=== PATIENT | male | born 1980 | race Asian ===

== ENCOUNTER → 2019-02-18 10:22 | Outpatient (CLI) | payer OTHER, SELFPAY ==
[2019-02-18 12:22] LABS: Add Manual Diff / Slide Review NO; Basophils Absolute Auto 0 /uL (0-100); Basophils Percent Auto 0.9 % (0-2); Eosinophils Absolute Auto 100 /uL (0-450); Eosinophils Percent Auto 2.2 % (2-4); Hematocrit 32.7 % (41-53); Hemoglobin 9.9 g/dL (13.5-17.5); Lymphocytes Absolute Auto 1300 /uL (1100-4500); Lymphocytes Percent Auto 34.4 % (25-40); Mean Corpuscular HGB Conc 30.1 % (30-36); Mean Corpuscular Hemoglobin 21.8 PG (26-34); Mean Corpuscular Volume 72.3 fL (80-100); Monocytes Absolute Auto 400 /uL (0-900); Monocytes Percent Auto 10.6 % (3-14); Neutrophils Absolute Auto 2000 /uL (1500-7000); Neutrophils Percent Auto 51.9 % (50-75); Platelet Count 548 X10^3/uL (150-400); Red Blood Cell Count 4.52 X10^6/uL (4.5-5.9); Red Cell Distribution Width 26.2 % (11.6-14.8); White Blood Cell Count 3.9 X10^3/uL (4.5-11.0)
[2019-02-18 12:34] LABS: Alanine Aminotransferase 118 IU/L (21-72); Albumin 4.4 g/dL (3.5-5.0); Albumin Globulin Ratio 1.3 (1.0-2.8); Alkaline Phosphatase 63 U/L (38-126); Aspartate Aminotransferase 94 IU/L (17-59); BUN Creatinine Ratio 14.4 (6-22); Bilirubin Total 0.8 mg/dL (0.2-1.3); Blood Urea Nitrogen 13 mg/dL (9-20); Calcium 9.1 mg/dL (8.4-10.2); Carbon Dioxide 26 mmol/L (22-32); Chloride 101 mmol/L (98-107); Cholesterol 158 mg/dL (140-199); Estimated Glomerular Filt Rate > 60.0 mL/min (>60); Globulin 3.5 g/dL (1.7-4.1); Glucose 89 mg/dL (70-100); HDL Cholesterol 46 mg/dL (40-60); HEMOLYSIS < 15 (0-50); LDL Cholesterol Calculated 79 mg/dL (<100); Potassium 4.1 mmol/L (3.4-5.1); Sodium 138 mmol/L (137-145); Total Protein 7.9 g/dL (6.3-8.2); Triglycerides 163 mg/dL (35-150)
[2019-02-18 12:46] LABS: Hypochromasia 2+
[2019-02-18 12:47] LABS: Anisocytosis 3+
[2019-02-18 13:46] LABS: TSH w/ Reflex to FT4 1.94 uIU/mL (0.47-4.68)
== END ==
PROVIDERS: PCP Family Medicine; Visit Provider Family Medicine
DX: Z13.220 Encounter for screening for lipoid disorders (principal)
CPT/HCPCS: 80053; 80061; 84443; 85025

== ENCOUNTER → 2019-02-24 10:50 | Outpatient (CLI) | payer OTHER, SELFPAY ==
[2019-02-24 11:48] LABS: Add Manual Diff / Slide Review NO; Basophils Absolute Auto 0 /uL (0-100); Basophils Percent Auto 0.5 % (0-2); Eosinophils Absolute Auto 100 /uL (0-450); Eosinophils Percent Auto 1.6 % (2-4); Hematocrit 29.8 % (41-53); Hemoglobin 9.2 g/dL (13.5-17.5); Lymphocytes Absolute Auto 1700 /uL (1100-4500); Lymphocytes Percent Auto 43.5 % (25-40); Mean Corpuscular HGB Conc 30.7 % (30-36); Mean Corpuscular Hemoglobin 21.8 PG (26-34); Monocytes Absolute Auto 500 /uL (0-900); Monocytes Percent Auto 11.9 % (3-14); Neutrophils Absolute Auto 1700 /uL (1500-7000); Neutrophils Percent Auto 42.5 % (50-75); Platelet Count 460 X10^3/uL (150-400); Red Cell Distribution Width 26.9 % (11.6-14.8); White Blood Cell Count 3.9 X10^3/uL (4.5-11.0)
[2019-02-24 12:26] LABS: Anisocytosis 2+; Hypochromasia 3+
[2019-02-24 12:27] LABS: Polychromasia 1+
== END ==
PROVIDERS: PCP Family Medicine; Visit Provider Family Medicine
DX: Z00.01 Encounter for general adult medical examination with abnormal findings (principal); R10.9 Unspecified abdominal pain
CPT/HCPCS: 36415; 85025

== ENCOUNTER → 2019-03-18 14:42 | Outpatient (CLI) | payer OTHER, SELFPAY ==
[2019-03-18 16:21] LABS: HEMOLYSIS < 15 (0-50)
[2019-03-18 16:25] LABS: Erythrocyte Sedimentation Rate 5 MM/HR (0-15)
[2019-03-18 16:26] LABS: Total Iron Binding Capacity 474 ug/dL (261-462); Transferrin 404 mg/dL (206-381)
[2019-03-18 16:49] LABS: Iron 22 ug/dL (49-181); Percent Iron Saturation 5 % (20-50)
[2019-03-18 17:07] LABS: Lactate Dehydrogenase 449 U/L (313-618)
[2019-03-18 17:09] LABS: C-Reactive Protein Quant < 0.5 mg/dL (<1.0)
[2019-03-18 17:39] LABS: Ferritin 6.6 ng/mL (17.9-464)
[2019-03-20 14:43] LABS: Haptoglobin 46 mg/dL (43-212)
[2019-03-21 17:54] LABS: Hematocrit 37.1 % (38.5-50.0); Hemoglobin 10.1 g/dL (13.2-17.1); MCH 20.7 pg (27.0-33.0); MCV 75.9 fL (80.0-100.0); RBC Total Count 4.89 Million/uL (4.20-5.80); RDW 21.3 % (11.0-15.0)
== END ==
PROVIDERS: PCP Family Medicine; Visit Provider Family Medicine
DX: D64.9 Anemia, unspecified (principal)
CPT/HCPCS: 82728; 83010; 83021; 83540; 83550; 83615; 85014; 85018; 85041; 85651; 86140; 87517

== ENCOUNTER → 2019-03-24 12:42 | Outpatient (CLI) | payer OTHER, SELFPAY ==
[2019-03-24 14:04] LABS: Hep C Virus Ab w/Reflex Quant NEGATIVE s/c (NEGATIVE)
== END ==
PROVIDERS: PCP Family Medicine; Visit Provider Family Medicine
DX: D64.9 Anemia, unspecified (principal); Z11.59 Encounter for screening for other viral diseases
CPT/HCPCS: 86803

== ENCOUNTER 2019-11-17 14:29 | Inpatient (IN) | payer OTHER, SELFPAY ==
[2019-11-17] VITALS (24 sets, daily range): BP systolic 92–140; BP diastolic 56–93; PULSE 84–112; RESP 13–18; TEMP 36.4–38.8; O2SAT 99–100; BMI 28.8
--- NOTE | 2019-11-17 | PATH_ITS ---
[facility] Accession Number: [id number] . 01 Material submitted: . duodenum - DUODENAL ULCER . 01 Diagnosis: Duodenum, Ulcer, Biopsy: Duodenal mucosa with ulcer and focal foveolar metaplasia, suggestive of peptic duodenitis. Negative for cytomegalovirus inclusions by immunohistochemistry. Negative for granulomata, dysplasia or malignancy. MRV 11/20/2019 1142 Local . 01 Electronically signed: . Rashaun Guidry MD, PhD, Pathologist NPI- [id number] . 01 Gross description: . DUODENAL ULCER: Received in formalin are 2 fragment(s) of hook, soft tissue measuring 0.2 x 0.2 x 0.1 cm to 0.3 x 0.1 x 0.1 cm submitted entirely in 1 cassette(s) /QBJ 11/18/2019 0559 Local . 01 Microscopic: . An immunohistochemical stain is performed to evaluate for cytomegalovirus inclusions, and is negative. A control stain shows appropriate reactivity. . * This test was developed and its performance characteristics determined by [facility]. It has not been cleared or approved by the U.S. Food and Drug Administration. The FDA has determined that such clearance or approval is not necessary. This test is used for clinical purposes. It should not be regarded as investigational or for research. . 01 Pathologist provided ICD-10: K92.1, K29.81 . 01 CPT . 280142, F19838 Performed at: 01 [facility] [address] [address] [place] [address], [place], [place] [id number] MD Paramjit Rojas MD Phone: [phone]
--- NOTE | 2019-11-17 15:06 | ED_ITS ---
HPI - Dizziness General Chief Complaint: Dizziness Stated Complaint: Dizziness,Weak and fatigued Time Seen by Provider: 11/17/19 14:45 History of Present Illness HPI Narrative: CC: weakness and dizziness. HPI: The patient is a 39-year-old male who was sent into the emergency department by Dr. Hardy. Dr. Hardy sent the patient from his office. He states that the patient has a history of gastric ulcers and hepatitis B. in the office he was hypotensive and pale complaining of being dizzy and lightheaded. He had black stools in the office. He was sent to the emergency department to be re- evaluated for an occult GI bleed. The patient is very weak and tired. His history is primarily provided by his significant other. He has been eating and drinking a lot of blueberry shakes but his stool is black. He has had no nausea vomiting no hematemesis or coffee- ground emesis. He has been having abdominal pain in the epigastrium. He has had no syncope but he has been extremely tired and dizzy. They deny a history of diabetes mellitus hypertension seizure disorder stroke [place] or asthma. He has a history of gastric ulcer and hepatitis-B. He does not smoke cigarettes and chew tobacco use any drugs including marijuana but does drink alcohol. Related Data Home Medications Medication Instructions Recorded Confirmed No Known Home Medications 11/17/19 11/17/19 Allergies Allergy/AdvReac Type Severity Reaction Status Date / Time No Known Drug Allergies Allergy Verified 11/17/19 14:03 Review of Systems Review of Systems Narrative: REVIEW OF SYSTEMS: CONSTITUTIONAL: The patient has been very weak and tired dizzy and lightheaded. He has had no fever chills or sweats. NEUROLOGICAL: He has had no headache numbness tingling paresthesias anesthesia is paresis or paralysis. EENT: He has had no change in vision loss of vision sinus congestion sore throat CARDIO-PULMONARY: He has had no chest pain cough shortness of breath palpitations but has been dizzy and lightheaded as though he is going to pass out. GASTROINTESTINAL: Patient has had epigastric abdominal pain with nausea no vomiting no hematemesis coffee-ground emesis but has had melanotic stools. GENITAL URINARY: He has had no urinary symptoms. MUSCULOSKELETAL/ RHEUMATOLOGICAL: He denies any back pain Patient History Medical History Acute blood loss anemia (Acute) Gastric ulcer (Acute) Hepatitis B (Acute) Surgical History Status post arthroscopy Family History Mother Diabetes mellitus Liver disease Social History marital status: household members: spouse Smoking Status: Never smoker alcohol intake: current substance use type: does not use Smoking Status: Never smoker Exam Narrative Exam Narrative: PHYSICAL EXAM: CONSTITUTIONAL: The patient is very quiet and sleeping. His conjunctiva are pale as well as his lips and tongue. HEAD: AT/NC, the patient became weak and tired and very dizzy when he sat up EENT: PERRL, FROM of eyes, no discharge, no nystagmus MOUTH:Oral mucosa is moist and pale, posterior pharynx is without erythema or exudate. NECK: Supple, no obvious JVD, Trachea is midline without stridor, no palpable LN. SPINE: Palpationof the cervical, Thoracic, Lumbar or Sacral spine reveals no gross deformity or tenderness. No CVA tenderness. THORAX: No deformity, retractions, chest wall tenderness. LUNGS: Clear, symmetrical breath sounds without respiratory distress. HEART: Heart tones are distant regular tachycardic without murmur ABDOMEN: Soft, mild tender in the epigastrium without guarding or rebound EXTREMITIES: No edema, deformity, tenderness or cyanosis. SKIN: No rash, bruising, petechiae or purpura. NEURO: Awake, alert, oriented, conversive, cranial nerves II-XII are symmetrical , moves all 4 extremities and is ambulatory. Initial Vital Signs Initial Vital Signs: Vital Signs Temperature 97.6 F 11/17/19 15:14 Pulse Rate 112 H 11/17/19 15:14 Respiratory Rate 13 11/17/19 15:14 Blood Pressure 120/58 L 11/17/19 15:14 Pulse Oximetry 100 11/17/19 15:14 Course Course Course Narrative: 1536: I discussed the patient with Dr. Julien and he requested that I call and discussed the patient with General surgery because he is unsure whether not they will be able to scope him with his history. The patient appears to be having an acute upper GI bleed. Dr. Morel has been paged. [id number]: I discussed the patient with Dr. Morel and he says that he can go ahead and scope the patient. He states that the only potential problem is is if he has varices. The patient and his deny that he has ever been told that he had esophageal or gastric varices or that he has cirrhosis of the liver. He has been told that he has hepatitis B and no other liver disease. Dr. Morel states that he is willing to consult and scope the patient. I will call and discussed the patient with Dr. Julien. The patient was admitted to Dr. Julien as an inpatient with Dr. Maria Teresa back onsulting from general surgery. Orders Ordered: ED Orders 11/17/19 14:46 Urinalysis and Microscopic Stat 11/17/19 14:48 Complete Blood Count AUTO DIFF Stat Comprehensive Metabolic Panel Stat Lipase Stat Packed Cells Stat Troponin & CK Cardiac Panel Stat Type and Screen Stat 11/17/19 15:40 Lactate (Lactic Acid) Stat Pantoprazole Sodium 80 mg/ (Sodium Chloride) 100 mls @ 10 mls/hr IV CONT FRANKLYN Last Infusion: 11/17/19 17:51 Dose: 8 mg/hr, 10 mls/hr Documented by: Admin: 11/17/19 15:56 Dose: 8 mg/hr, 10 mls/hr Documented by: VINCE Sodium Chloride (Normal Saline 0.9%) 500 mls @ 21 mls/hr IV CONT FRANKLYN Discontinued Medications Sodium Chloride (Normal Saline 0.9%) 1,000 mls @ 1,000 mls/hr IV BOLUS ONE Stop: 11/17/19 15:45 Last Admin: 11/17/19 18:22 Dose: 42 mls/hr Documented by: Infusion: 11/17/19 16:23 Dose: 0 mls/hr Documented by: Admin: 11/17/19 15:14 Dose: 1,000 mls/hr Documented by: MARK Pantoprazole Sodium (Protonix) 40 mg IV NOW ONE Stop: 11/17/19 14:47 Last Admin: 11/17/19 15:14 Dose: 40 mg Documented by: MARK Vital Signs Vital signs: Vital Signs - 8 hr 11/17/19 15:14 11/17/19 16:02 Temperature 97.6 F 98.5 F Pulse Rate 112 H 93 H Respiratory Rate 13 13 Blood Pressure 120/58 L 130/61 Pulse Oximetry 100 MDM - Dizziness Medical Records Attestation: I reviewed the patient's medical records. Lab Data Attestation: I reviewed the patient's lab results. Result diagrams: 11/17/19 14:48 11/17/19 14:48 Labs: Lab Results 11/17/19 11/17/19 11/17/19 Range/Units 14:48 14:48 14:48 WBC 13.8 H (4.5-11.0) X10^3/uL RBC 2.39 L (4.5-5.9) X10^6/uL Hgb 4.8 L* (13.5-17.5) g/dL Hct 16.4 L* (41-53) % MCV 68.4 L (80-100) fL MCH 20.1 L (26-34) PG MCHC 29.4 L (30-36) % RDW 26.8 H (11.6-14.8) % Plt Count 435 H (150-400) X10^3/uL Neut % (Auto) 86.5 H (50-75) % Lymph % (Auto) 10.2 L (25-40) % [place] % (Auto) 2.8 L (3-14) % Eos % (Auto) 0.0 L (2-4) % Baso % (Auto) 0.5 (0-2) % Neut # (Auto) 50097 H (2258-1796) /uL Lymph # (Auto) 1400 (5659-5165) /uL [place] # (Auto) 400 (0-900) /uL Eos # (Auto) 0 (0-450) /uL Baso # (Auto) 100 (0-100) /uL RBC Morphology See below Polychromasia 3+ H Poikilocytosis 1+ H Anisocytosis 3+ H Microcytosis 2+ H Sodium 135 L (137-145) mmol/L Potassium 4.1 (3.4-5.1) mmol/L Chloride 107 (98-107) mmol/L Carbon Dioxide 21 L (22-32) mmol/L BUN 27 H (9-20) mg/dL Creatinine 0.88 (0.66-1.25) mg/dL Estimated GFR > 60.0 (>60) mL/min BUN/Creatinine Ratio 30.7 H (6-22) Glucose 147 H (70-100) mg/dL Lactate (0.7-2.1) mmol/L Calcium 8.0 L (8.4-10.2) mg/dL Total Bilirubin 0.2 (0.2-1.3) mg/dL AST 75 H (17-59) IU/L ALT 130 H (<50) IU/L Alkaline Phosphatase 36 L (38-126) U/L Total Creatine Kinase 77 (55-170) U/L CK-MB (CK-2) TNP CK-MB (CK-2) Rel Index TNP Troponin I < 0.012 (0.01-0.034) ng/mL Total Protein 5.8 L (6.3-8.2) g/dL Albumin 3.1 L (3.5-5.0) g/dL Globulin 2.7 (1.7-4.1) g/dL Albumin/Globulin Ratio 1.1 (1.0-2.8) Lipase 110 (23-300) U/L Blood Type A Positive Antibody Screen Negative Crossmatch See Detail 11/17/19 Range/Units 15:40 WBC (4.5-11.0) X10^3/uL RBC (4.5-5.9) X10^6/uL Hgb (13.5-17.5) g/dL Hct (41-53) % MCV (80-100) fL MCH (26-34) PG MCHC (30-36) % RDW (11.6-14.8) % Plt Count (150-400) X10^3/uL Neut % (Auto) (50-75) % Lymph % (Auto) (25-40) % [place] % (Auto) (3-14) % Eos % (Auto) (2-4) % Baso % (Auto) (0-2) % Neut # (Auto) (6241-7899) /uL Lymph # (Auto) (3182-4247) /uL [place] # (Auto) (0-900) /uL Eos # (Auto) (0-450) /uL Baso # (Auto) (0-100) /uL RBC Morphology Polychromasia Poikilocytosis Anisocytosis Microcytosis Sodium (137-145) mmol/L Potassium (3.4-5.1) mmol/L Chloride (98-107) mmol/L Carbon Dioxide (22-32) mmol/L BUN (9-20) mg/dL Creatinine (0.66-1.25) mg/dL Estimated GFR (>60) mL/min BUN/Creatinine Ratio (6-22) Glucose (70-100) mg/dL Lactate 2.7 H (0.7-2.1) mmol/L Calcium (8.4-10.2) mg/dL Total Bilirubin (0.2-1.3) mg/dL AST (17-59) IU/L ALT (<50) IU/L Alkaline Phosphatase (38-126) U/L Total Creatine Kinase (55-170) U/L CK-MB (CK-2) CK-MB (CK-2) Rel Index Troponin I (0.01-0.034) ng/mL Total Protein (6.3-8.2) g/dL Albumin (3.5-5.0) g/dL Globulin (1.7-4.1) g/dL Albumin/Globulin Ratio (1.0-2.8) Lipase (23-300) U/L Blood Type Antibody Screen Crossmatch ECG Data Attestation: I personally reviewed and interpreted this ECG as follows: Interpretation: The patient's EKG obtained on November 16 at 14:4 2:28 a.m. reveals a normal sinus rhythm with a ventricular rate of 95. The patient has left ventricular hypertrophy by voltage. His QTC is slightly prolonged at 480 milliseconds. [place] is normal. The patient has a small R-wave in lead III. T- waves are flat in leads III and slightly elevated in AVF. T-waves are upright in V1. There are no other acute diagnostic ST segment changes. The patient's T-waves are inverted in lead V4 V5 V6 suggestive of lateral wall ischemia. There is no ST segment suggesting infarct. Discharge Plan Departure Patient Disposition: Admitted As Inpatient Clinical Impression: Dizziness, H/O gastric ulcer GI bleeding Qualifiers: GI bleed type/associated pathology: melena Qualified Code(s): K92.1 - Melena Anemia Qualifiers: Anemia type: unspecified type Qualified Code(s): D64.9 - Anemia, unspecified Discharge Date/Time: 11/17/19 17:51 Referrals: Antonio Gar MD [Primary Care Provider] - Admit Date/Time: 11/17/19 16:09 Admit Provider: Aryan Julien
[2019-11-17 15:09] LABS: Add Manual Diff / Slide Review NO; Basophils Absolute Auto 100 /uL (0-100); Basophils Percent Auto 0.5 % (0-2); Eosinophils Absolute Auto 0 /uL (0-450); Lymphocytes Absolute Auto 1400 /uL (1100-4500); Lymphocytes Percent Auto 10.2 % (25-40); Mean Corpuscular HGB Conc 29.4 % (30-36); Mean Corpuscular Hemoglobin 20.1 PG (26-34); Mean Corpuscular Volume 68.4 fL (80-100); Monocytes Absolute Auto 400 /uL (0-900); Monocytes Percent Auto 2.8 % (3-14); Neutrophils Absolute Auto 11900 /uL (1500-7000); Neutrophils Percent Auto 86.5 % (50-75); Platelet Count 435 X10^3/uL (150-400); Red Blood Cell Count 2.39 X10^6/uL (4.5-5.9); Red Cell Distribution Width 26.8 % (11.6-14.8); White Blood Cell Count 13.8 X10^3/uL (4.5-11.0)
[2019-11-17] MEDS: SODIUM CHLORIDE 0.9% 1,000 ML 1000 ML IV (15:14)
[2019-11-17] MEDS: PANTOPRAZOLE 40 MG VIAL IV (15:14)
[2019-11-17 15:18] LABS: Alanine Aminotransferase 130 IU/L (<50); Albumin 3.1 g/dL (3.5-5.0); Albumin Globulin Ratio 1.1 (1.0-2.8); Alkaline Phosphatase 36 U/L (38-126); Aspartate Aminotransferase 75 IU/L (17-59); BUN Creatinine Ratio 30.7 (6-22); Bilirubin Total 0.2 mg/dL (0.2-1.3); Blood Urea Nitrogen 27 mg/dL (9-20); Carbon Dioxide 21 mmol/L (22-32); Chloride 107 mmol/L (98-107); Creatine Kinase 77 U/L (55-170); Estimated Glomerular Filt Rate > 60.0 mL/min (>60); Globulin 2.7 g/dL (1.7-4.1); Glucose 147 mg/dL (70-100); HEMOLYSIS < 15 (0-50); Lipase 110 U/L (23-300); Potassium 4.1 mmol/L (3.4-5.1); Sodium 135 mmol/L (137-145); Total Protein 5.8 g/dL (6.3-8.2)
[2019-11-17 15:20] LABS: Hematocrit 16.4 % (41-53)
--- NOTE | 2019-11-17 15:20 | PC.NURSE ---
reports sudden onset of weakness. reports started yesterday, he states his stomach has been upset on and off due to a diet he has been on. He stopped that diet yesterday.
[2019-11-17 15:21] LABS: Hemoglobin 4.8 g/dL (13.5-17.5)
[2019-11-17 15:28] LABS: Troponin I < 0.012 ng/mL (0.01-0.034)
[2019-11-17 15:37] LABS: Poikilocytosis 1+; Polychromasia 3+
[2019-11-17 15:38] LABS: Anisocytosis 3+; Microcytosis 2+
[2019-11-17] MEDS: PANTOPRAZOLE 80 MG in SODIUM CHLORIDE 0.9% 100 ML 10 ML IV (15:56)
[2019-11-17 15:58] LABS: Lactate (Lactic Acid) 2.7 mmol/L (0.7-2.1)
--- NOTE | 2019-11-17 16:13 | PC.NURSE ---
dr loaiza at bedside consenting for surgery. rapid covid swab collected and sent to lab.
--- NOTE | 2019-11-17 16:19 | P.CONS_ITS ---
History of Present Illness Consult details Date Patient Seen: 11/17/19 Time Patient Seen: 16:20 Chief complaint: Dizziness,Weak and fatigued Narrative: This is a 39-year-old male with a GI bleed. He presents to the emergency room today with dizziness epigastric pain and melanotic stool. He has had no vomiting or hematemesis. On admission hemoglobin 4.8 heart rate 110 blood pressure 100/60. He is currently receiving transfusion. He is not on anticoagulation, does not take NSAIDs or use tobacco he does consume alcohol several times per week. No history of prior endoscopy. Last solid food intake was 16 hours ago. Meds Home Medications and Allergies Home Medications Medication Instructions Recorded Confirmed Type No Known Home Medications 11/17/19 11/17/19 History Allergies Allergy/AdvReac Type Severity Reaction Status Date / Time No Known Drug Allergies Allergy Verified 11/17/19 14:03 Review of Systems Review of Systems Narrative: A 10 point review of systems is negative except as noted in the HPI Exam Vital Signs (past 8 hours): - 11/17/19 15:14 11/17/19 16:02 11/17/19 16:17 Temperature 97.6 F 98.5 F 98.4 F Pulse Rate 112 H 93 H 99 H Respiratory Rate 13 13 14 Blood Pressure 120/58 L 130/61 130/60 Pulse Oximetry 100 Oxygen Delivery Method Room Air Narrative Exam Narrative: General-no acute distress, well nourished HEENT-moist mucous membranes, no scleral icterus Neck-supple, no lymphadenopathy Chest- non labored respirations, clear to auscultation bilaterally Cardiac-regular rate no peripheral edema Abdomen-soft, nontender, non distended Extremities-warm, well perfused Neurological-alert and oriented, no focal deficits Objective Labs Result Diagrams: 11/17/19 14:48 11/17/19 14:48 Labs: Laboratory Results - last 24 hr 11/17/19 11/17/19 11/17/19 14:48 14:48 14:48 WBC 13.8 H RBC 2.39 L Hgb 4.8 L* Hct 16.4 L* MCV 68.4 L MCH 20.1 L MCHC 29.4 L RDW 26.8 H Plt Count 435 H Neut % (Auto) 86.5 H Lymph % (Auto) 10.2 L [place] % (Auto) 2.8 L Eos % (Auto) 0.0 L Baso % (Auto) 0.5 Neut # (Auto) 44458 H Lymph # (Auto) 1400 [place] # (Auto) 400 Eos # (Auto) 0 Baso # (Auto) 100 RBC Morphology See below Polychromasia 3+ H Poikilocytosis 1+ H Anisocytosis 3+ H Microcytosis 2+ H Sodium 135 L Potassium 4.1 Chloride 107 Carbon Dioxide 21 L BUN 27 H Creatinine 0.88 Estimated GFR > 60.0 BUN/Creatinine Ratio 30.7 H Glucose 147 H Lactate Calcium 8.0 L Total Bilirubin 0.2 AST 75 H ALT 130 H Alkaline Phosphatase 36 L Total Creatine Kinase 77 CK-MB (CK-2) TNP CK-MB (CK-2) Rel Index TNP Troponin I < 0.012 Total Protein 5.8 L Albumin 3.1 L Globulin 2.7 Albumin/Globulin Ratio 1.1 Lipase 110 Blood Type A Positive Antibody Screen Negative Crossmatch See Detail 11/17/19 15:40 WBC RBC Hgb Hct MCV MCH MCHC RDW Plt Count Neut % (Auto) Lymph % (Auto) [place] % (Auto) Eos % (Auto) Baso % (Auto) Neut # (Auto) Lymph # (Auto) [place] # (Auto) Eos # (Auto) Baso # (Auto) RBC Morphology Polychromasia Poikilocytosis Anisocytosis Microcytosis Sodium Potassium Chloride Carbon Dioxide BUN Creatinine Estimated GFR BUN/Creatinine Ratio Glucose Lactate 2.7 H Calcium Total Bilirubin AST ALT Alkaline Phosphatase Total Creatine Kinase CK-MB (CK-2) CK-MB (CK-2) Rel Index Troponin I Total Protein Albumin Globulin Albumin/Globulin Ratio Lipase Blood Type Antibody Screen Crossmatch Assessment & Plan Assessment and plan (1) GI bleeding: Qualifiers: GI bleed type/associated pathology: melena Qualified Code(s): K92.1 - Melena Current visit: Yes Status: Acute Assessment & Plan narrative: 39-year-old male with an aute GI bleed. Given his epigastric pain melanotic stool I suspect it is upper in source. Hemoglobin 4.8 with associated mild hypotension and tachycardia on admission currently receiving transfusion. I recommended that we proceed with a esophagoduodenoscopy and possible colonoscopy with anesthesiologist assistance this evening after he has received transfusion and his blood count and hemodynamics improve. Discussed technical nature of the procedure with him and his including their associated risks of further bleeding, misdiagnosis, intestinal perforation, need for further procedure. Their questions have been answered and he is in agreement with this plan.
--- NOTE | 2019-11-17 16:19 | PC.NURSE ---
no reaction noted, blood infusion increased to 400ml/hr
[2019-11-17 17:07] LABS: COVID19 -Nasal RAPID Negative (Negative)
[2019-11-17 17:45] LABS: Reflexed Lactate in 2 Hours Y
--- NOTE | 2019-11-17 17:49 | PC.NURSE ---
second unit of blood to remain infusing in OR. 100ml infused in ED
[2019-11-17] MEDS: SODIUM CHLORIDE 0.9% 1,000 ML 42 ML IV (18:22)
[2019-11-17 18:28] LABS: Lactate 2HR (Lactic Acid Rflx) 2.5 mmol/L (0.7-2.1)
--- NOTE | 2019-11-17 18:55 | PM.OP.ENDO ---
Operative Date/Time/Diagnoses Date of procedure: 11/17/19 Time of procedure: 18:55 Pre-op diagnosis: GI bleed Post-op diagnosis: same Procedure & Clinicians Study performed: Esophagoduodenoscopy Same procedure as scheduled: Yes Indications: 39-year-old male presents with epigastric pain melanotic stool hemoglobin of 5, mild tachycardia and hypertension. Following transfusion and improvement in his hemodynamics is brought to the procedure room for esophagoduodenoscopy possible colonoscopy Surgeon: Anthony Morel Procedure Notes SCOAP/Timeout: Performed Procedure in detail: The patient was brought to the procedure room and a general anesthesia was induced and he was intubated with endotracheal tube by anesthesia. Time-out was performed ensure the correct patient procedure necessary equipment within the operating room.. A bite block was placed. the scope was inserted into the mouth and advanced through the esophagus and into the stomach. The pylorus was intubated. In the 1st portion of the duodenum there was a 1 cm healing ulcer with no visible vessel or active bleeding. A biopsy of the ulcer was performed hemostasis was observed. The scope was retroflexed within the stomach and there was no hiatal hernia. The scope was withdrawn into the esophagus the Z line was seen at 35 cm from the incisions. There was no wheeler's esophagitis or masses or strictures. Stomach was desufflated and scope removed. Patient tolerated procedure well. Findings: duodenal ulcer Specimen(s): other (Duodenal ulcer) Impression: Duodenal ulcer Post-procedure Recommendations: Other recommendation (Protonix) Disposition: Acute Care
--- NOTE | 2019-11-17 19:28 | SUR.PHASEI ---
Patient denies pain and nausea. Tolerating po. Patient febrile amd tachycardic with HR 99-105.
[2019-11-17 21:21] LABS: Hemoglobin 6.8 g/dL (13.5-17.5)
[2019-11-17 21:39] LABS: Bacteria Urine None Seen; RBC Urine None Seen (0-5/HPF); WBC Urine None Seen (0-5/HPF)
[2019-11-17 21:41] LABS: Appearance Urine UA CLEAR; Bilirubin Urine UA NEGATIVE (NEGATIVE); Color Urine UA YELLOW; Glucose Urine UA NEGATIVE (Negative); Ketones Urine UA NEGATIVE (NEGATIVE); Leukocyte Esterase Urine UA NEGATIVE (NEGATIVE); Nitrite Urine UA NEGATIVE (Negative); Occult Blood Urine UA NEGATIVE (Negative); Protein Urine UA NEGATIVE (Negative); Urobilinogen Urine UA 0.2 E.U./dL (0.2); pH Urine UA 5.5 (4.5-8.0)
[2019-11-17 22:03] LABS: Culture Indicated Urine Cult Not Indicated; Urine Comments Microscopic Normal
[2019-11-17] MEDS: AMOXICILLIN 250 MG CAPSULE 1000 MG PO (22:35)
[2019-11-17] MEDS: SODIUM CHLORIDE 0.9% 500 ML 21 ML IV (22:35)
[2019-11-17] MEDS: CLARITHROMYCIN 500 MG TABLET PO (22:35)
--- NOTE | 2019-11-17 23:36 | PC.NURSE ---
Received report from PACU. Two units of PRBC's administered prior to admission. Care assumed at 1944. Protonix infusing at 10ml/hr (8mg/hr). Slightly febrile. Patient denies pain. Steady on feet with standby assist. Stat H&H 6.8/22.0. Third unit of PRBC's ordered. Started transfusion at 2211, tolerating well.
--- NOTE | 2019-11-17 23:42 | P.HP_ITS ---
History of Present Illness History of Present Illness Date Patient Seen: 11/17/19 Time Patient Seen: 20:28 Date of Onset of Symptoms: 11/15/19 Chief complaint: Dizziness,Weak and fatigued Narrative: Mr. Narendra Jackson is a 39-year-old male with a history of gastric ulcers and acute blood loss anemia and hepatitis B who presents to the ER for weakness and dizziness. The patient experienced an onset weakness and dizziness 2 days ago on Saturday with associated epigastric discomfort. The patient's symptoms became progressive and at the urging of his presented to Dr. Gar's office and was referred to the ER for weakness dizziness and pallor and being unable to stand. The patient reports having associated symptoms of epigastric pain that is nonradiating and poor appetite but reports no nausea vomiting, no coffee-ground emesis or hematemesis. The patient reports dark stools for the last couple days but attributed to blueberry shakes. Patient sources a history of a prior gastric ulcer 3-4 months ago and history of he patitis B while in the that he reports as treated. 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 He reports no recent illness and no COVID-19 exposures. He has had no fevers or chills or diaphoresis. He has had no nasal congestion or sore throat. He denies complaints of chest pain or palpitations and has no shortness of breath cough or wheezing. He has abdominal pain as above without nausea and has no diarrhea or constipation and endorses melena without hematochezia. He denies urinary difficulties. Upon arrival to the ER the patient is found to be afebrile with temperature 97.6?, heart rate of 112, blood pressure 120/58, respiration 13 saturating 100% on room air. No imaging was completed. On laboratory analysis the patient is f ound to have a white count of 13.8, hemoglobin of 4.8, hematocrit of 16.4 and platelets of 435. His MCV is 68.4, MCH 20.1 and RDW is 26.8. His electrolytes are all within normal limits and has a BUN of 27 and creatinine of 0.88. His nonfasting glucose is 147. He has a total bilirubin of 0.2 and elevated AST of 78, elevated ALT of 130 and low alkaline phosphatase at 36. His albumin is 3.1. His lactate is 2.5 and is CK is 77 and troponin is negative at 0.012. Dr. Morel is consulted at the request of the hospitalist service and agrees to consult and take the patient urgently to endoscopy. The patient has rapid COVID-19 screening completed which is negative. The received 1 L of normal sa line and transfused 2 units of packed red cells. The patient is admitted to the medicine service for upper GI bleed. Patient History Medical History Acute blood loss anemia (Acute) Gastric ulcer (Acute) Hepatitis B (Acute) Surgical History Status post arthroscopy Family & Social History Family History (Updated 11/17/19 @ 23:57 by LASHONDA Ambrose) Mother Diabetes mellitus Liver disease Father Medical history unknown Social History: household members spouse Prior Living Arrangements House Safety & Behavioral: Feels Safe in Current Yes Environment Been Physically Hurt or No Threatened By a Person Suicidal Ideation Description None Suicide Plan Description No Plan Tobacco & Substance use: Smoking Status Never smoker alcohol intake current alcohol intake frequency holiday/special occasion Substance Use Type does not use Meds Home Medications and Allergies Home Medications Medication Instructions Recorded Confirmed Type No Known Home Medications 11/17/19 11/17/19 History Allergies Allergy/AdvReac Type Severity Reaction Status Date / Time No Known Drug Allergies Allergy Verified 11/17/19 14:03 Review of Systems Review of Systems ROS: Yes All systems reviewed with the patient and are negative except as otherwise documented Exam Vital Signs (past 8 hours): - 11/17/19 16:02 11/17/19 16:17 11/17/19 16:53 Temperature 98.5 F 98.4 F 98.4 F Pulse Rate 93 H 99 H 90 Pulse Rate [Orthostatic Lying] Pulse Rate [Orthostatic Sitting] Pulse Rate [Orthostatic Standing] Respiratory Rate 13 14 16 Blood Pressure 130/61 130/60 Blood Pressure [Left Arm] 137/64 Blood Pressure [Orthostatic Lying] Blood Pressure [Orthostatic Sitting] Blood Pressure [Orthostatic Standing] Pulse Oximetry 99 11/17/19 17:06 11/17/19 17:21 11/17/19 17:52 Temperature 98.4 F 98.6 F 98.7 F Pulse Rate 100 H 92 H 92 H Pulse Rate [Orthostatic Lying] Pulse Rate [Orthostatic Sitting] Pulse Rate [Orthostatic Standing] Respiratory Rate 18 18 18 Blood Pressure 127/61 131/62 116/78 Blood Pressure [Left Arm] Blood Pressure [Orthostatic Lying] Blood Pressure [Orthostatic Sitting] Blood Pressure [Orthostatic Standing] Pulse Oximetry 100 11/17/19 17:57 11/17/19 19:03 11/17/19 19:08 Temperature 101.9 F H 100.8 F H Pulse Rate 91 H 105 H 102 H Pulse Rate [Orthostatic Lying] Pulse Rate [Orthostatic Sitting] Pulse Rate [Orthostatic Standing] Respiratory Rate 16 14 17 Blood Pressure 130/78 126/83 137/82 Blood Pressure [Left Arm] Blood Pressure [Orthostatic Lying] Blood Pressure [Orthostatic Sitting] Blood Pressure [Orthostatic Standing] Pulse Oximetry 100 99 99 11/17/19 19:13 11/17/19 19:18 11/17/19 19:23 Temperature Pulse Rate 97 H 100 H 88 Pulse Rate [Orthostatic Lying] Pulse Rate [Orthostatic Sitting] Pulse Rate [Orthostatic Standing] Respiratory Rate 13 18 15 Blood Pressure 137/82 117/76 128/77 Blood Pressure [Left Arm] Blood Pressure [Orthostatic Lying] Blood Pressure [Orthostatic Sitting] Blood Pressure [Orthostatic Standing] Pulse Oximetry 99 99 100 11/17/19 19:29 11/17/19 19:35 11/17/19 19:50 Temperature 100.6 F H 98.5 F Pulse Rate 94 H 97 H 91 H Pulse Rate [Orthostatic Lying] Pulse Rate [Orthostatic Sitting] Pulse Rate [Orthostatic Standing] Respiratory Rate 13 17 16 Blood Pressure 140/93 H 136/76 135/86 Blood Pressure [Left Arm] Blood Pressure [Orthostatic Lying] Blood Pressure [Orthostatic Sitting] Blood Pressure [Orthostatic Standing] Pulse Oximetry 100 100 100 11/17/19 20:33 11/17/19 20:34 11/17/19 21:07 Temperature 98.7 F 99.2 F Pulse Rate 87 90 Pulse Rate [Orthostatic Lying] Pulse Rate [Orthostatic Sitting] Pulse Rate [Orthostatic Standing] Respiratory Rate 16 16 Blood Pressure 136/75 128/71 Blood Pressure [Left Arm] Blood Pressure [Orthostatic Lying] Blood Pressure [Orthostatic Sitting] Blood Pressure [Orthostatic Standing] Pulse Oximetry 100 100 100 11/17/19 21:23 11/17/19 21:59 11/17/19 22:11 Temperature 97.7 F 97.7 F Pulse Rate 89 89 Pulse Rate [Orthostatic Lying] 84 Pulse Rate [Orthostatic Sitting] 90 Pulse Rate [Orthostatic Standing] 111 H Respiratory Rate 18 18 Blood Pressure 115/59 L 115/59 L Blood Pressure [Left Arm] Blood Pressure [Orthostatic Lying] 124/79 Blood Pressure [Orthostatic Sitting] 131/71 Blood Pressure [Orthostatic Standing] 128/71 Pulse Oximetry 100 11/17/19 22:28 Temperature 99.0 F Pulse Rate 84 Pulse Rate [Orthostatic Lying] Pulse Rate [Orthostatic Sitting] Pulse Rate [Orthostatic Standing] Respiratory Rate 18 Blood Pressure 92/56 L Blood Pressure [Left Arm] Blood Pressure [Orthostatic Lying] Blood Pressure [Orthostatic Sitting] Blood Pressure [Orthostatic Standing] Pulse Oximetry Oxygen Delivery Method Room Air Narrative Exam Narrative: GENERAL APPEARANCE: well developed, well nourished, in no acute distress. HEENT: Normocephalic, PERRLA, conjunctiva clear, EOMs intact without nystagmus, no sinus tenderness to percussion, no rhinorrhea, mucous membranes are moist and pale without lesions or exudate. NECK/THYROID: neck supple, no JVD, no carotid bruit, no thyromegaly, trachea midline. LYMPH NODES: no cervical or supraclavicular lymphadenopathy. SKIN: Pale, warm and dry, no visible lesions, rashes, ulcerations or petechiae. HEART: regular rate and rhythm, S1-S2, 1/6 systolic murmur most prominent at the left upper sternal border, no rubs or gallops, brisk capillary refill, no edema LUNGS: clear to auscultation bilaterally, no coarseness crackles or wheezing, no cough present CHEST: Symmetrical movement, no accessory muscle use, good tidal volume. ABDOMEN: Soft, no distention, no epigastric or abdominal tenderness, no guarding or peritoneal signs, no organomegaly, no flank or suprapubic tenderness, active bowel tones. BACK: Normal curvature, nontender to palpation, no CVA tenderness on percussion EXTREMITIES: moves all extremities, strength is 5/5 and symmetrical, no deformi ties or joint effusions. NEUROLOGIC: AAO x4, no focal neurologic deficits, cranial nerves II-XII grossly intact, sensation intact to light touch, hearing grossly normal to speech. PSYCH: Good judgment, good insight, linear thought process, cooperative, appropriate with stable behavior Objective Labs Result Diagrams: 11/17/19 21:01 11/17/19 14:48 Labs: Laboratory Results - last 24 hr 11/17/19 11/17/19 11/17/19 14:48 14:48 14:48 WBC 13.8 H RBC 2.39 L Hgb 4.8 L* Hct 16.4 L* MCV 68.4 L MCH 20.1 L MCHC 29.4 L RDW 26.8 H Plt Count 435 H Neut % (Auto) 86.5 H Lymph % (Auto) 10.2 L Collier % (Auto) 2.8 L Eos % (Auto) 0.0 L Baso % (Auto) 0.5 Neut # (Auto) 80834 H Lymph # (Auto) 1400 Collier # (Auto) 400 Eos # (Auto) 0 Baso # (Auto) 100 RBC Morphology See below Polychromasia 3+ H Poikilocytosis 1+ H Anisocytosis 3+ H Microcytosis 2+ H Sodium 135 L Potassium 4.1 Chloride 107 Carbon Dioxide 21 L BUN 27 H Creatinine 0.88 Estimated GFR > 60.0 BUN/Creatinine Ratio 30.7 H Glucose 147 H Lactate Calcium 8.0 L Total Bilirubin 0.2 AST 75 H ALT 130 H Alkaline Phosphatase 36 L Total Creatine Kinase 77 CK-MB (CK-2) TNP CK-MB (CK-2) Rel Index TNP Troponin I < 0.012 Total Protein 5.8 L Albumin 3.1 L Globulin 2.7 Albumin/Globulin Ratio 1.1 Lipase 110 Urine Color Urine Appearance Urine pH Ur Specific [place] Urine Protein Urine Glucose (UA) Urine Ketones Urine Occult Blood Urine Nitrate Urine Bilirubin Urine Urobilinogen Ur Leukocyte Esterase Urine RBC Urine WBC Urine Bacteria Ur Culture Indicated? Micro UA Comment COVID-19 PCR Blood Type A Positive Antibody Screen Negative Crossmatch See Detail 11/17/19 11/17/19 11/17/19 15:40 16:10 18:14 WBC RBC Hgb Hct MCV MCH MCHC RDW Plt Count Neut % (Auto) Lymph % (Auto) Collier % (Auto) Eos % (Auto) Baso % (Auto) Neut # (Auto) Lymph # (Auto) Collier # (Auto) Eos # (Auto) Baso # (Auto) RBC Morphology Polychromasia Poikilocytosis Anisocytosis Microcytosis Sodium Potassium Chloride Carbon Dioxide BUN Creatinine Estimated GFR BUN/Creatinine Ratio Glucose Lactate 2.7 H 2.5 H Calcium Total Bilirubin AST ALT Alkaline Phosphatase Total Creatine Kinase CK-MB (CK-2) CK-MB (CK-2) Rel Index Troponin I Total Protein Albumin Globulin Albumin/Globulin Ratio Lipase Urine Color Urine Appearance Urine pH Ur Specific [place] Urine Protein Urine Glucose (UA) Urine Ketones Urine Occult Blood Urine Nitrate Urine Bilirubin Urine Urobilinogen Ur Leukocyte Esterase Urine RBC Urine WBC Urine Bacteria Ur Culture Indicated? Micro UA Comment COVID-19 PCR Negative Blood Type Antibody Screen Crossmatch 11/17/19 11/17/19 21:01 21:30 WBC RBC Hgb 6.8 L* Hct 22.0 L MCV MCH MCHC RDW Plt Count Neut % (Auto) Lymph % (Auto) [place]lier % (Auto) Eos % (Auto) Baso % (Auto) Neut # (Auto) Lymph # (Auto) Collier # (Auto) Eos # (Auto) Baso # (Auto) RBC Morphology Polychromasia Poikilocytosis Anisocytosis Microcytosis Sodium Potassium Chloride Carbon Dioxide BUN Creatinine Estimated GFR BUN/Creatinine Ratio Glucose Lactate Calcium Total Bilirubin AST ALT Alkaline Phosphatase Total Creatine Kinase CK-MB (CK-2) CK-MB (CK-2) Rel Index Troponin I Total Protein Albumin Globulin Albumin/Globulin Ratio Lipase Urine Color Yellow Urine Appearance Clear Urine pH 5.5 Ur Specific [place] 1.020 Urine Protein Negative Urine Glucose (UA) Negative Urine Ketones Negative Urine Occult Blood Negative Urine Nitrate Negative Urine Bilirubin Negative Urine Urobilinogen 0.2 Ur Leukocyte Esterase Negative Urine RBC None seen Urine WBC None seen Urine Bacteria None seen Ur Culture Indicated? Cult not indicated Micro UA Comment Microscopic normal COVID-19 PCR Blood Type Antibody Screen Crossmatch Assessment & Plan Assessment & Plan narrative: This is a 39-year-old male patient who presents to his primary care provider's office for progressive weakness and dizziness and epigastric pain or last 2 days. The patient has a prior history of gastric ulcer treated 3-4 months ago with acute blood loss anemia. 1. Upper GI bleed, recurrent, with acute blood loss anemia, present on admission, active -onset of symptoms 2 days ago with epigastric pain with progressive weakness and dizziness. Patient unable to stand at PCPs office and referred to ER. -patient endorses history of melena but denies hematemesis, coffee-ground emesis or hematochezia. He is on no blood thinners and takes no NSAIDs and report occasional alcohol. -hemoglobin on admission is 4.8 with hematocrit of 16.4. His MCV is 68.4, MCH is 20.1 and RDW is 26.8. -transfusion is initiated in the ER with 2 units packed cells. -Dr. Morel is consulted through the ER and his taken the patient to the endoscopy suite Re finds a 1 cm healing duodenal ulcer without visible vessel or active bleeding. -the patient is started on Protonix infusion. -upon arrival to the floor the patient has received 2 units of blood. -patient continues to experience transient orthostasis sitting up on the bedside, BUN creatinine ratio is 30:1 on admission labs. -patient received 1 L normal saline in the emergency department, additional fluid in the procedure suite, ordered normal saline 75 cc/hour. -will recheck the hemoglobin hematocrit stat and determine the need for further transfusion. -CBC in the morning. 2. History of Hepatitis-B, chronic, stable. -patient states was treated in the and has had no recurring problems. No liver tenderness or hepatomegaly on exam, negative Santos sign. -he does present with elevated AST at 75, ALT at 130, low alkaline phosphatase at 36. -no notation of esophageal varices on endoscopy report. -this is not appear contributory to the patient's acute GI bleed be followed up with primary care as needed. Isolation: None, patient COVID-19 VTE prophylaxis: Bilateral SCDs, chemical prophylaxis contraindicated due to GI bleeding IV fluid: Normal saline 75 cc/hour Diet: NPO with a regular diet for breakfast. Code status: Patient is FULL CODE. He designates his to be his surrogate decision maker. This is a 39-year-old male patient who was admitted to the hospital for acute blood loss anemia secondary to duodenal ulcer. The patient is admitted as an inpatient with expected length of stay to be greater than 2 midnights. COVID-19 COVID-19 status: Negative Result date/Date tested (Pos, Neg/Pending): 11/17/19 Scores GCS Tawana coma scale eye opening: Spontaneous [place] coma scale verbal response: Orientated [place] coma scale motor response: Obey commands T[place]ana coma scale total score: 15
[2019-11-18] VITALS (11 sets, daily range): BP systolic 122–149; BP diastolic 62–82; PULSE 75–94; RESP 16–20; TEMP 36.2–37.6; O2SAT 98–100; BMI 28.8
[2019-11-18] MEDS: SODIUM CHLORIDE 0.9% 1,000 ML 50 ML IV (01:58)
[2019-11-18] MEDS: PANTOPRAZOLE 80 MG in SODIUM CHLORIDE 0.9% 100 ML 10 ML IV (03:07)
[2019-11-18 05:58] LABS: Basophils Absolute Auto 100 /uL (0-100); Basophils Percent Auto 0.6 % (0-2); Eosinophils Absolute Auto 100 /uL (0-450); Eosinophils Percent Auto 0.9 % (2-4); Hemoglobin 7.5 g/dL (13.5-17.5); Lymphocytes Absolute Auto 3200 /uL (1100-4500); Lymphocytes Percent Auto 23.6 % (25-40); Mean Corpuscular HGB Conc 32.3 % (30-36); Mean Corpuscular Volume 77.3 fL (80-100); Monocytes Absolute Auto 1400 /uL (0-900); Monocytes Percent Auto 10.2 % (3-14); Neutrophils Absolute Auto 8700 /uL (1500-7000); Neutrophils Percent Auto 64.7 % (50-75); Platelet Count 267 X10^3/uL (150-400); Red Blood Cell Count 2.98 X10^6/uL (4.5-5.9); White Blood Cell Count 13.5 X10^3/uL (4.5-11.0)
[2019-11-18 06:28] LABS: Add Manual Diff / Slide Review SLIDE REVIEW
[2019-11-18 06:29] LABS: Hematocrit 23.1 % (41-53)
[2019-11-18 07:25] LABS: Anisocytosis 3+
[2019-11-18 07:27] LABS: Polychromasia 2+
[2019-11-18] MEDS: CLARITHROMYCIN 500 MG TABLET PO ×2 (08:42→21:05)
[2019-11-18] MEDS: AMOXICILLIN 250 MG CAPSULE 1000 MG PO ×2 (08:43→21:05)
--- NOTE | 2019-11-18 11:15 | CM.DANOTE ---
Patient is a 39 year old male who was admitted on 11/17/19 for Dizziness and fatigue. [facility] and his PCP is Dr. Gar. EMR was reviewed. Per MD, pt was referred by his PCP to go to ER and Surgeon consulted and was admitted for urgent endoscopy. Pt had duodenal ulcer that contributed to his Upper G.I. bleed and received 3 units of blood. SW met bedside with pt and explained role and he confirms he lives in [place] with his and 3 children and pt works and drives and is independent at baseline and has never been admitted to the hospital before. Pt confirms that since surgery and receiving blood he feels so much better and stronger. Pt was quite weak and far below baseline at admit but has now been able to ambulate independently and does not anticipate any SW needs at d/c and preference is to d/c home via his 's POV and she is available for assist if needed. Pt hopeful to d/c home later today but understands he may need to stay overnight to confirm he is stable for discharge. Plan: SW to follow for likely pt d/c home via his 's POV when medically stable . SW to follow for any further identified discharge planning needs. ANIA Bañuelos Discharge Planning/Care Management CM Discharge Assessment Start: 11/18/19 11:12 Freq: Status: Active Protocol: Document 11/18/19 11:12 BF (Rec: 11/18/19 11:15 [id number]) Discharge Planning Assessment Assigned Flag Signaler ANIA Izaguirre DPOA/Assigned Designee Name informally spouse Noelle Contact Information [phone] Advance Directives? No Advance Directives on File No History Provided By Patient,Medical Record Has Patient been admitted in last 30 No days? Prior Living Arrangements House Household Members spouse,children Type of transporation used prior to Drives own vehicle admit Independent with ADL's Yes Is patient alert and oriented? Yes Caregiver for Another Yes: 3 children at home Comment Likely home with family when stable Barriers to Discharge No Discharge Plan Home Transportation Arrangement Spouse available to provide transport home at d/c Referrals Initiated None needed Whiteboard Updated in Patient Room with Yes name and ext. # of Flag Signaler Review Status In Process Please Provide Date Initial DC 11/18/19 Assessment Was Performed Next Review Type Continued Stay Review
--- NOTE | 2019-11-18 14:26 | P.PN_ITS ---
Subjective Subjective Date Patient Seen: 11/18/19 Interval history: Narendra Rico is a 39-year-old male with a past medical history of hepatitis B status post treatment and considered to be in remission who presented to the ED at guidance of PCP for epigastric discomfort, melena, fatigue, weakness and dizziness. The patient is resting comfortably in bed. Patient reports his fatigue has resolved and he has a lot more energy. He continues to have mild intermittent lightheadedness. The patient has received 3 units PRBC with appropriate compensation and a hemoglobin now 7.5 up from 4.8. Discontinued PPI gtt and started oral PPI. The patient has no other complaints and denies headache, chest pain, chest pressure, shortness of breath, abdominal pain, nausea, vomiting, fever, chills, dysuria, diarrhea or constipation. The patient has had no further melena. The patient is voiding and eliminating without difficulty. The patient is up ambulating without assistance. Exam Vital Signs (past 8 hours): - 11/18/19 07:00 11/18/19 08:00 11/18/19 08:50 Temperature 97.7 F Pulse Rate 80 Pulse Rate [Orthostatic Lying] 75 Pulse Rate [Orthostatic Sitting] 80 Pulse Rate [Orthostatic Standing] 85 Respiratory Rate 18 Blood Pressure 139/73 Blood Pressure [Orthostatic Lying] 136/79 Blood Pressure [Orthostatic Sitting] 139/73 Blood Pressure [Orthostatic Standing] 132/75 Pulse Oximetry 98 100 11/18/19 12:00 Temperature 98.2 F Pulse Rate 82 Pulse Rate [Orthostatic Lying] Pulse Rate [Orthostatic Sitting] Pulse Rate [Orthostatic Standing] Respiratory Rate 18 Blood Pressure 130/62 Blood Pressure [Orthostatic Lying] Blood Pressure [Orthostatic Sitting] Blood Pressure [Orthostatic Standing] Pulse Oximetry 98 Oxygen Delivery Method Room Air Oxygen Flow Rate 0 Narrative Exam Narrative: General: Middle-aged male sitting in bed and in no acute distress, well- developed, well-nourished, appropriately interactive. HEENT: Normocephalic, atraumatic. External ears without defect. Pupils equal, round, and reactive to light. Anicteric sclerae, moist conjunctivae, and no lid lag. Oropharynx free of erythema and cobble stoning with moist mucosa. Neck: Supple with full range of motion. No jugular venous distension. No lymphadenopathy or thyromegaly. Cardiovascular: Regular rate and rhythm without murmurs, rubs, or gallops appreciated. Pulmonary: Clear to auscultation bilaterally without crackles, wheezes, or rhonchi. Normal respiratory effort with no use of accessory muscles. Abdomen: Soft, bowel sounds present, nontender, nondistended. No hepatosplenomegaly or masses appreciated. Extremities: No clubbing, cyanosis, or edema. Skin: Normal temperature, turgor, and texture; no rash, ulcers, or subcutaneous nodules appreciated. Neurological: Cranial nerves grossly intact. Psychiatric: Normal mood and affect. Alert and oriented to person, place, and time. Objective Labs Result Diagrams: 11/18/19 05:15 11/17/19 14:48 Labs: Laboratory Results - last 24 hr 11/17/19 11/17/19 11/17/19 14:48 14:48 14:48 WBC 13.8 H RBC 2.39 L Hgb 4.8 L* Hct 16.4 L* MCV 68.4 L MCH 20.1 L MCHC 29.4 L RDW 26.8 H Plt Count 435 H Neut % (Auto) 86.5 H Lymph % (Auto) 10.2 L [place] % (Auto) 2.8 L Eos % (Auto) 0.0 L Baso % (Auto) 0.5 Neut # (Auto) 07242 H Lymph # (Auto) 1400 [place] # (Auto) 400 Eos # (Auto) 0 Baso # (Auto) 100 RBC Morphology See below Polychromasia 3+ H Poikilocytosis 1+ H Anisocytosis 3+ H Microcytosis 2+ H Sodium 135 L Potassium 4.1 Chloride 107 Carbon Dioxide 21 L BUN 27 H Creatinine 0.88 Estimated GFR > 60.0 BUN/Creatinine Ratio 30.7 H Glucose 147 H Lactate Calcium 8.0 L Magnesium Total Bilirubin 0.2 AST 75 H ALT 130 H Alkaline Phosphatase 36 L Total Creatine Kinase 77 CK-MB (CK-2) TNP CK-MB (CK-2) Rel Index TNP Troponin I < 0.012 Total Protein 5.8 L Albumin 3.1 L Globulin 2.7 Albumin/Globulin Ratio 1.1 Lipase 110 Urine Color Urine Appearance Urine pH Ur Specific [place] Urine Protein Urine Glucose (UA) Urine Ketones Urine Occult Blood Urine Nitrate Urine Bilirubin Urine Urobilinogen Ur Leukocyte Esterase Urine RBC Urine WBC Urine Bacteria Ur Culture Indicated? Micro UA Comment COVID-19 PCR Blood Type A Positive Antibody Screen Negative Crossmatch See Detail 11/17/19 11/17/19 11/17/19 14:48 15:40 16:10 WBC RBC Hgb Hct MCV MCH MCHC RDW Plt Count Neut % (Auto) Lymph % (Auto) [place] % (Auto) Eos % (Auto) Baso % (Auto) Neut # (Auto) Lymph # (Auto) [place] # (Auto) Eos # (Auto) Baso # (Auto) RBC Morphology Polychromasia Poikilocytosis Anisocytosis Microcytosis Sodium Potassium Chloride Carbon Dioxide BUN Creatinine Estimated GFR BUN/Creatinine Ratio Glucose Lactate 2.7 H Calcium Magnesium 2.0 Total Bilirubin AST ALT Alkaline Phosphatase Total Creatine Kinase CK-MB (CK-2) CK-MB (CK-2) Rel Index Troponin I Total Protein Albumin Globulin Albumin/Globulin Ratio Lipase Urine Color Urine Appearance Urine pH Ur Specific [place] Urine Protein Urine Glucose (UA) Urine Ketones Urine Occult Blood Urine Nitrate Urine Bilirubin Urine Urobilinogen Ur Leukocyte Esterase Urine RBC Urine WBC Urine Bacteria Ur Culture Indicated? Micro UA Comment COVID-19 PCR Negative Blood Type Antibody Screen Crossmatch 11/17/19 11/17/19 11/17/19 18:14 21:01 21:30 WBC RBC Hgb 6.8 L* Hct 22.0 L MCV MCH MCHC RDW Plt Count Neut % (Auto) Lymph % (Auto) [place] % (Auto) Eos % (Auto) Baso % (Auto) Neut # (Auto) Lymph # (Auto) [place] # (Auto) Eos # (Auto) Baso # (Auto) RBC Morphology Polychromasia Poikilocytosis Anisocytosis Microcytosis Sodium Potassium Chloride Carbon Dioxide BUN Creatinine Estimated GFR BUN/Creatinine Ratio Glucose Lactate 2.5 H Calcium Magnesium Total Bilirubin AST ALT Alkaline Phosphatase Total Creatine Kinase CK-MB (CK-2) CK-MB (CK-2) Rel Index Troponin I Total Protein Albumin Globulin Albumin/Globulin Ratio Lipase Urine Color Yellow Urine Appearance Clear Urine pH 5.5 Ur Specific [place] 1.020 Urine Protein Negative Urine Glucose (UA) Negative Urine Ketones Negative Urine Occult Blood Negative Urine Nitrate Negative Urine Bilirubin Negative Urine Urobilinogen 0.2 Ur Leukocyte Esterase Negative Urine RBC None seen Urine WBC None seen Urine Bacteria None seen Ur Culture Indicated? Cult not indicated Micro UA Comment Microscopic normal COVID-19 PCR Blood Type Antibody Screen Crossmatch 11/18/19 05:15 WBC 13.5 H RBC 2.98 L Hgb 7.5 L Hct 23.1 L MCV 77.3 L D MCH 25.0 L MCHC 32.3 RDW 25.0 H Plt Count 267 Neut % (Auto) 64.7 D Lymph % (Auto) 23.6 L [place] % (Auto) 10.2 Eos % (Auto) 0.9 L Baso % (Auto) 0.6 Neut # (Auto) 8700 H Lymph # (Auto) 3200 [place] # (Auto) 1400 H Eos # (Auto) 100 Baso # (Auto) 100 RBC Morphology See below Polychromasia 2+ H Poikilocytosis Anisocytosis 3+ H Microcytosis Sodium Potassium Chloride Carbon Dioxide BUN Creatinine Estimated GFR BUN/Creatinine Ratio Glucose Lactate Calcium Magnesium Total Bilirubin AST ALT Alkaline Phosphatase Total Creatine Kinase CK-MB (CK-2) CK-MB (CK-2) Rel Index Troponin I Total Protein Albumin Globulin Albumin/Globulin Ratio Lipase Urine Color Urine Appearance Urine pH Ur Specific [place] Urine Protein Urine Glucose (UA) Urine Ketones Urine Occult Blood Urine Nitrate Urine Bilirubin Urine Urobilinogen Ur Leukocyte Esterase Urine RBC Urine WBC Urine Bacteria Ur Culture Indicated? Micro UA Comment COVID-19 PCR Blood Type Antibody Screen Crossmatch Assessment & Plan Assessment & Plan narrative: Narendra Rico is a 39-year-old male with a past medical history of gastric ulcers and hepatitis B status post treatment and considered to be in remission who presented to the ED at guidance of PCP for epigastric discomfort, melena, fatigue, weakness and dizziness. 1. Acute upper GI bleed with symptomatic acute blood loss anemia, secondary to duodenal ulcer present on admission. Resolving -Patient presented with epigastric discomfort, melena, fatigue, progressive weakness and dizziness. Patient unable to stand at PCPs office and referred to ED. -Patient endorses history of melena but denies hematemesis, coffee-ground emesis or hematochezia. He is on no blood thinners and takes no NSAIDs. He occasionally consumes alcohol. -Initial hemoglobin 4.8. Received 3 units PRBC with appropriate compensation hemoglobin now 7.5. Continue to monitor CBC daily. -Received Protonix gtt which was switched to oral Protonix 40 mg twice daily. -Received 1 L normal saline in ED. Discontinued IV fluids as patient appears adequately hydrated. -Iron profile demonstrated low iron saturation otherwise normal. Plan to hold off on iron supplementation. -Continue to monitor closely on telemetry and for overt signs of bleeding. -Consulted general surgery, Dr. Morel, who performed EGD and found 1 cm healing duodenal ulcer without visible vessel or active bleeding. Dr. Morel started empiric triple therapy for H. pylori. Biopsies pending. 2. History of Hepatitis-B. -Patient states was treated for hepatitis B in the and has had no recurring problems. No liver tenderness or hepatomegaly on exam. -He does present with elevated AST at 75, ALT at 130, low alkaline phosphatase at 36. -No notation of esophageal varices on endoscopy report and does not appear contributory to the patient's acute GI bleed. Continue follow up with PCP as needed. Code status: Full code DVT prophylaxis: SCDs. Chemical prophylaxis contraindicated due to GI bleed. Disposition: Patient likely to discharge home tomorrow if blood counts remain stable and there is no recurrence of GI bleeding.
[2019-11-18 15:01] LABS: HEMOLYSIS < 15 (0-50); Iron 65 ug/dL (49-181)
[2019-11-18 15:12] LABS: Percent Iron Saturation 17 % (20-50); Total Iron Binding Capacity 390 ug/dL (261-462); Transferrin 298 mg/dL (206-381)
--- NOTE | 2019-11-18 15:30 | DIET.PN ---
Dietary Progress Note Assessment: 39y M c sx of dizziness, weakness, fatigue x1mo admitted for blood loss anemia given 3 units blood found to have healing duodenal ulcer suspect for h. pylori referred to nutrition for duodenal ulcer diet reccs. Pt had gastric ulcer 3-4mo ago c associated blood loss anemia, started feeling weak 1 mo ago despite focus on reducing stress and good diet. Pt was doing intermittent fasting 16/8 then 18/6 to lose weight for competitive volleyball season. Pt drinks minimal etoh, minimal use of NSAIDS, minimal caffeine. Pt diet regularly includes green tea, chicken, veg, rice, and smoothies containing blueberry, super greens, stacy seeds, banana, carrot, celery, garlic, tumeric, and Emergen-C packets which the whole family drinks together. HT: 172.7cm WT: 86.1kg BMI: 28.9 Labs: hgb 4.8 LL, hct 16.4 L MNA: 14 normal Sky: 23 normal Nutrition Diagnosis: increased need for dietary mineral (iron) intake r/t blood loss anemia aeb admit hgb 4.8, after 3 units blood hgb 7.5, pt found to have 1cm healing duodenal ulcer. Interventions: 1. Educated pt on repleting iron with food sources by eating iron rich foods in conjunction c high Vit C foods to increase absorption as tolerated c goal of 11mg iron from food daily. Pt given handout with high iron foods and collaborated on plan for incorporating more shrimp and stacy seeds into diet per pt preferences. 2. Avoid foods which cause pain during the healing process. 3. Add 1/4 tsp black pepper to smoothies to increase bioavailability of cucurmin in tumeric. Diet Order:general EER: 2300kcal, 75g PRO (0.8g/kg standard), 2500mL fluids
--- NOTE | 2019-11-18 16:06 | P.PN_ITS ---
Subjective Subjective Date Patient Seen: 11/18/19 Time Patient Seen: 16:06 Interval history: No acute overnight events. No further melanotic stools. Received total of 3 units packed red blood cells with resolution of his his tachycardia and hypotension. Tolerating regular diet. Feels much better overall Exam Vital Signs (past 8 hours): - 11/18/19 08:50 11/18/19 12:00 11/18/19 15:25 Temperature 97.7 F 98.2 F 97.1 F L Pulse Rate 80 82 82 Respiratory Rate 18 18 18 Blood Pressure 139/73 130/62 126/70 Pulse Oximetry 100 98 98 Oxygen Delivery Method Room Air Oxygen Flow Rate 0 Narrative Exam Narrative: General adult male alert oriented no acute distress Abdomen soft nontender nondistended Objective Labs Result Diagrams: 11/18/19 05:15 11/17/19 14:48 Labs: Laboratory Results - last 24 hr 11/17/19 11/17/19 11/17/19 14:48 14:48 15:40 WBC RBC Hgb Hct MCV MCH MCHC RDW Plt Count Neut % (Auto) Lymph % (Auto) [place] % (Auto) Eos % (Auto) Baso % (Auto) Neut # (Auto) Lymph # (Auto) [place] # (Auto) Eos # (Auto) Baso # (Auto) RBC Morphology Polychromasia Anisocytosis Lactate 2.7 H Magnesium 2.0 Iron TIBC % Saturation Transferrin Urine Color Urine Appearance Urine pH Ur Specific [place] Urine Protein Urine Glucose (UA) Urine Ketones Urine Occult Blood Urine Nitrate Urine Bilirubin Urine Urobilinogen Ur Leukocyte Esterase Urine RBC Urine WBC Urine Bacteria Ur Culture Indicated? Micro UA Comment COVID-19 PCR Blood Type A Positive Antibody Screen Negative Crossmatch See Detail 11/17/19 11/17/19 11/17/19 16:10 18:14 21:01 WBC RBC Hgb 6.8 L* Hct 22.0 L MCV MCH MCHC RDW Plt Count Neut % (Auto) Lymph % (Auto) [place] % (Auto) Eos % (Auto) Baso % (Auto) Neut # (Auto) Lymph # (Auto) [place] # (Auto) Eos # (Auto) Baso # (Auto) RBC Morphology Polychromasia Anisocytosis Lactate 2.5 H Magnesium Iron TIBC % Saturation Transferrin Urine Color Urine Appearance Urine pH Ur Specific [place] Urine Protein Urine Glucose (UA) Urine Ketones Urine Occult Blood Urine Nitrate Urine Bilirubin Urine Urobilinogen Ur Leukocyte Esterase Urine RBC Urine WBC Urine Bacteria Ur Culture Indicated? Micro UA Comment COVID-19 PCR Negative Blood Type Antibody Screen Crossmatch 11/17/19 11/18/19 11/18/19 21:30 05:15 05:15 WBC 13.5 H RBC 2.98 L Hgb 7.5 L Hct 23.1 L MCV 77.3 L D MCH 25.0 L MCHC 32.3 RDW 25.0 H Plt Count 267 Neut % (Auto) 64.7 D Lymph % (Auto) 23.6 L [place] % (Auto) 10.2 Eos % (Auto) 0.9 L Baso % (Auto) 0.6 Neut # (Auto) 8700 H Lymph # (Auto) 3200 [place] # (Auto) 1400 H Eos # (Auto) 100 Baso # (Auto) 100 RBC Morphology See below Polychromasia 2+ H Anisocytosis 3+ H Lactate Magnesium Iron 65 TIBC 390 % Saturation 17 L Transferrin 298 Urine Color Yellow Urine Appearance Clear Urine pH 5.5 Ur Specific [place] 1.020 Urine Protein Negative Urine Glucose (UA) Negative Urine Ketones Negative Urine Occult Blood Negative Urine Nitrate Negative Urine Bilirubin Negative Urine Urobilinogen 0.2 Ur Leukocyte Esterase Negative Urine RBC None seen Urine WBC None seen Urine Bacteria None seen Ur Culture Indicated? Cult not indicated Micro UA Comment Microscopic normal COVID-19 PCR Blood Type Antibody Screen Crossmatch Assessment & Plan Assessment & Plan narrative: 39-year-old male with an upper GI bleed hemodynamically stable. Underwent esophagoduodenoscopy yesterday demonstrated a healing duodenal ulcer. Hematocrit 23 today from 16 on admission and following transfusion three packs red blood cells with appropriate response. Empiric triple therapy for H pylori started biopsies are pending. Okay to discharge tomorrow if blood counts continue be stable.
--- NOTE | 2019-11-18 16:15 | PC.NURSE ---
Addendum entered by Marita Mancera R.N. 11/18/19 23:29: Pt up in chair fully dressed. PO meds @ hs. Taking oral foods and fluids well without complaints. Per CONVEYOR LOADER, pt had one dark stool this evening shift; guaiac positive. Addendum entered by Marita Mancera R.N. 11/18/19 18:52: Requests IV's out. Explained to pt need to have iv access while in hospital. R AC site leaks with flush and so this was dc'd. Left outer upper arm site flushes easily. This site to remain intact for hospitalization. Pt verbalizes understanding and agreement. Pt in contact with family/children via telephone. Original Note: Pt awake, alert resting quietly in bed. Tele in place and pt is able to move all extremities independently. Denies abdominal pain or nausea. Pt reports abdomen is not distended. Bowel tones present x 4. BL calf scd's replaced. Pt was instructed to notify staff if has bowel movement so this can be observed and monitored. Pt verbalizes agreement and understanding. Roundhouse Worker has seen pt this evening shift to discuss foods which are iron rich.
[2019-11-18] MEDS: SODIUM CHLORIDE 0.9% FLUSH 10 ML IV (18:40)
[2019-11-18] MEDS: PANTOPRAZOLE 40 MG TABLET PO (21:05)
[2019-11-19] VITALS (7 sets, daily range): BP systolic 128–139; BP diastolic 68–79; PULSE 77–97; RESP 16–18; TEMP 36.4–36.7; O2SAT 97–100
[2019-11-19 04:36] LABS: HEMOLYSIS < 15 (0-50); Iron 32 ug/dL (49-181)
[2019-11-19 04:46] LABS: Percent Iron Saturation 8 % (20-50); Total Iron Binding Capacity 422 ug/dL (261-462); Transferrin 324 mg/dL (206-381)
[2019-11-19 05:40] LABS: Basophils Absolute Auto 100 /uL (0-100); Basophils Percent Auto 0.7 % (0-2); Eosinophils Absolute Auto 200 /uL (0-450); Eosinophils Percent Auto 2.7 % (2-4); Hematocrit 21.8 % (41-53); Hemoglobin 7.3 g/dL (13.5-17.5); Lymphocytes Absolute Auto 1900 /uL (1100-4500); Lymphocytes Percent Auto 24.2 % (25-40); Mean Corpuscular HGB Conc 33.4 % (30-36); Monocytes Absolute Auto 800 /uL (0-900); Monocytes Percent Auto 9.9 % (3-14); Neutrophils Absolute Auto 5000 /uL (1500-7000); Neutrophils Percent Auto 62.5 % (50-75); Platelet Count 268 X10^3/uL (150-400); Red Blood Cell Count 2.79 X10^6/uL (4.5-5.9); Red Cell Distribution Width 25.7 % (11.6-14.8); White Blood Cell Count 7.9 X10^3/uL (4.5-11.0)
[2019-11-19 05:42] LABS: Alanine Aminotransferase 102 IU/L (<50); Albumin 2.8 g/dL (3.5-5.0); Alkaline Phosphatase 34 U/L (38-126); Aspartate Aminotransferase 61 IU/L (17-59); BUN Creatinine Ratio 14.6 (6-22); Bilirubin Total 0.3 mg/dL (0.2-1.3); Blood Urea Nitrogen 13 mg/dL (9-20); Calcium 7.9 mg/dL (8.4-10.2); Carbon Dioxide 27 mmol/L (22-32); Chloride 106 mmol/L (98-107); Estimated Glomerular Filt Rate > 60.0 mL/min (>60); Globulin 2.7 g/dL (1.7-4.1); Glucose 110 mg/dL (70-100); HEMOLYSIS < 15 (0-50); Potassium 3.7 mmol/L (3.4-5.1); Sodium 136 mmol/L (137-145); Total Protein 5.5 g/dL (6.3-8.2)
[2019-11-19 05:52] LABS: Add Manual Diff / Slide Review SLIDE REVIEW
[2019-11-19] MEDS: PANTOPRAZOLE 40 MG TABLET PO (06:09)
[2019-11-19 07:42] LABS: Anisocytosis 3+; Polychromasia 2+
[2019-11-19] MEDS: FERROUS GLUCONATE 324 MG TABLET PO (08:32)
[2019-11-19] MEDS: SODIUM CHLORIDE 0.9% FLUSH 10 ML IV (08:32)
[2019-11-19] MEDS: AMOXICILLIN 250 MG CAPSULE 1000 MG PO (08:32)
[2019-11-19] MEDS: CLARITHROMYCIN 500 MG TABLET PO (08:32)
--- NOTE | 2019-11-19 11:53 | P.DS_ITS ---
History of Present Illness History of Present Illness Date Patient Seen: 11/17/19 Chief complaint: Dizziness,Weak and fatigued Narrative: Written by Aryan GALLEGO: Mr. Narendra Jackson is a 39-year-old male with a history of gastric ulcers and acute blood loss anemia and hepatitis B who presents to the ER for weakness and dizziness. The patient experienced an onset weakness and dizziness 2 days ago on Saturday with associated epigastric discomfort. The patient's symptoms became progressive and at the urging of his presented to Dr. Gar's office and was referred to the ER for weakness dizziness and pallor and being unable to stand. The patient reports having associated symptoms of epigastric pain that is nonradiating and poor appetite but reports no nausea vomiting, no coffee-ground emesis or hematemesis. The patient reports dark stools for the last couple days but attributed to blueberry shakes. Patient sources a history of a prior gastric ulcer 3-4 months ago and history of hepatitis B while in the that he reports as treated. 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 He reports no recent illness and no COVID-19 exposures. He has had no fevers or chills or diaphoresis. He has had no nasal congestion or sore throat. He denies complaints of chest pain or palpitations and has no shortness of breath cough or wheezing. He has abdominal pain as above without nausea and has no diarrhea or constipation and endorses melena without hematochezia. He denies urinary difficulties. Upon arrival to the ER the patient is found to be afebrile with temperature 97.6?, heart rate of 112, blood pressure 120/58, respiration 13 saturating 100% on room air. No imaging was completed. On laboratory analysis the patient is found to have a white count of 13.8, hemoglobin of 4.8, hematocrit of 16.4 and platelets of 435. His MCV is 68.4, MCH 20.1 and RDW is 26.8. His electrolytes are all within normal limits and has a BUN of 27 and creatinine of 0.88. His nonfasting glucose is 147. He has a total bilirubin of 0.2 and elevated AST of 78, elevated ALT of 130 and low alkaline phosphatase at 36. His albumin is 3.1. His lactate is 2.5 and is CK is 77 and troponin is negative at 0.012. Dr. Morel is consulted at the request of the hospitalist service and agrees to consult and take the patient urgently to endoscopy. The patient has rapid COVID-19 screening completed which is negative. The received 1 L of normal saline and transfused 2 units of packed red cells. The patient is admitted to the medicine service for upper GI bleed. Discharge Providers Provider Date of admission: 11/17/19 16:09 Discharge Date: 11/19/19 Primary care physician: Antonio Gar MD Consults: 11/17/19 17:24 Consult to General Surgery Routine Comment: Consulting Provider: Anthony Morel Reason for consultation: GI bleed Has provider been notified: Yes 11/17/19 20:44 Consult to Dietitian, Adult Routine Comment: Reason For Exam: Duodenal ulcer 11/17/19 20:51 Consult to Discharge Planning Routine Comment: Discharge provider: Lorenza Riley DO Summary Hospital Course Discharge Diagnosis: 1. Acute upper GI bleed with symptomatic acute blood loss anemia, secondary to duodenal ulcer, present on admission. Resolved. 2. History of Hepatitis B. Hospital Course: Narendra Rico is a 39-year-old male with a past medical history of gastric ulcers and hepatitis B status post treatment and considered to be in remission who presented to the ED at guidance of PCP for epigastric discomfort, melena, fatigue, weakness and dizziness. 1. Acute upper GI bleed with symptomatic acute blood loss anemia, secondary to duodenal ulcer, present on admission. Resolved. -Patient presented with epigastric discomfort, melena, fatigue, progressive weakness and dizziness. Patient unable to stand at PCPs office and referred to ED. -Patient endorses history of melena but denies hematemesis, coffee-ground emesis or hematochezia. He is on no blood thinners and takes no NSAIDs. He occasionally consumes alcohol. -Initial hemoglobin 4.8. Received 3 units PRBC with appropriate compensation and hemoglobin stable at 7.3. Continued to monitor CBC daily. -Received Protonix gtt which was switched to oral Protonix 40 mg twice daily. -Received 1 L normal saline in ED. Discontinued IV fluids as patient appears adequately hydrated. -Iron profile demonstrated iron deficiency anemia as anticipated and started iron supplementation with ferrous gluconate 324 mg daily for 1 month to help replete blood stores. -Continued to monitor closely on telemetry and for overt signs of bleeding. Patient had no recurrence of melena and blood counts stable. -Consulted general surgery, Dr. Morel, who performed EGD and found 1 cm healing duodenal ulcer without visible vessel or active bleeding. Dr. Morel started empiric triple therapy for H. pylori. Continued amoxicillin 1 g twice daily, clarithromycin 500 mg twice daily and pantoprazole 40 mg twice daily for 2 weeks. Recommend pantoprazole 40 mg daily, thereafter, for 2-4 weeks to heal duodenal ulcer. Biopsies pending. Recommend PCP repeat CBC in 1 week, follow- up biopsies and ensure that patient has been completely eradicated of H. pylori once treatment completed. 2. History of Hepatitis B. -Patient states was treated for hepatitis B in the and has had no recurring problems. No liver tenderness or hepatomegaly on exam. -He does present with elevated AST at 75, ALT at 130, low alkaline phosphatase at 36. -No notation of esophageal varices on endoscopy report and does not appear contributory to the patient's acute GI bleed. Continued follow up with PCP as needed. Exam Vital Signs (past 8 hours): - 11/19/19 04:00 11/19/19 04:40 11/19/19 08:00 Temperature 97.5 F L 98.1 F Pulse Rate 77 97 H Pulse Rate [Orthostatic Lying] Pulse Rate [Orthostatic Sitting] Pulse Rate [Orthostatic Standing] Respiratory Rate 18 16 Blood Pressure 137/73 138/74 Blood Pressure [Orthostatic Lying] Blood Pressure [Orthostatic Sitting] Blood Pressure [Orthostatic Standing] Pulse Oximetry 98 98 99 11/19/19 08:25 11/19/19 09:00 Temperature Pulse Rate Pulse Rate [Orthostatic Lying] 83 Pulse Rate [Orthostatic Sitting] 86 Pulse Rate [Orthostatic Standing] 88 Respiratory Rate Blood Pressure Blood Pressure [Orthostatic Lying] 128/68 Blood Pressure [Orthostatic Sitting] 133/73 Blood Pressure [Orthostatic Standing] 136/78 Pulse Oximetry 97 Oxygen Delivery Method Room Air Oxygen Flow Rate 0 Narrative Exam Narrative: General: Middle-aged male sitting in bed and in no acute distress, well- developed, well-nourished, appropriately interactive. HEENT: Normocephalic, atraumatic. External ears without defect. Pupils equal, round, and reactive to light. Anicteric sclerae, moist conjunctivae, and no lid lag. Oropharynx free of erythema and cobble stoning with moist mucosa. Neck: Supple with full range of motion. Cardiovascular: Regular rate and rhythm without murmurs, rubs, or gallops appreciated. Pulmonary: Clear to auscultation bilaterally without crackles, wheezes, or rhon chi. Normal respiratory effort with no use of accessory muscles. Abdomen: Soft, bowel sounds present, nontender, nondistended. No hepatosplenomegaly or masses appreciated. Extremities: No clubbing, cyanosis, or edema. Skin: Normal temperature, turgor, and texture; no rash, ulcers, or subcutaneous nodules appreciated. Neurological: Cranial nerves grossly intact. Psychiatric: Normal mood and affect. Alert and oriented to person, place, and time. Objective Labs Result Diagrams: 11/19/19 05:20 11/19/19 05:20 Labs: Laboratory Results - last 24 hr 11/17/19 11/18/19 11/19/19 14:48 05:15 05:20 WBC 7.9 RBC 2.79 L Hgb 7.3 L Hct 21.8 L MCV 78.0 L MCH 26.0 MCHC 33.4 RDW 25.7 H Plt Count 268 Neut % (Auto) 62.5 Lymph % (Auto) 24.2 L [place] % (Auto) 9.9 Eos % (Auto) 2.7 Baso % (Auto) 0.7 Neut # (Auto) 5000 Lymph # (Auto) 1900 [place] # (Auto) 800 Eos # (Auto) 200 Baso # (Auto) 100 RBC Morphology See below Polychromasia 2+ H Anisocytosis 3+ H Sodium Potassium Chloride Carbon Dioxide BUN Creatinine Estimated GFR BUN/Creatinine Ratio Glucose Calcium Iron 32 L 65 TIBC 422 390 % Saturation 8 L 17 L Transferrin 324 298 Total Bilirubin AST ALT Alkaline Phosphatase Total Protein Albumin Globulin Albumin/Globulin Ratio 11/19/19 05:20 WBC RBC Hgb Hct MCV MCH MCHC RDW Plt Count Neut % (Auto) Lymph % (Auto) [place] % (Auto) Eos % (Auto) Baso % (Auto) Neut # (Auto) Lymph # (Auto) [place] # (Auto) Eos # (Auto) Baso # (Auto) RBC Morphology Polychromasia Anisocytosis Sodium 136 L Potassium 3.7 Chloride 106 Carbon Dioxide 27 BUN 13 Creatinine 0.89 Estimated GFR > 60.0 BUN/Creatinine Ratio 14.6 Glucose 110 H Calcium 7.9 L Iron TIBC % Saturation Transferrin Total Bilirubin 0.3 AST 61 H ALT 102 H Alkaline Phosphatase 34 L Total Protein 5.5 L Albumin 2.8 L Globulin 2.7 Albumin/Globulin Ratio 1.0 Discharge Plan Discharge Plan Patient Disposition: Home Discharge comment: You are being discharged home. You have a duodenal ulcer which is healing and the cause of your GI bleed. You are being treated for H. pylori a bacteria that causes GI ulcers. You have been prescribed amoxicillin 1000 mg twice daily, clarithromycin 500 mg twice daily, and pantoprazole 40 mg twice daily for 2 weeks to eradicate H. pylori. You will then continue pantoprazole 40 mg daily thereafter to continue to heal your duodenal ulcer. Recommend you take a probiotic or consume live good bacteria while on antibiotics such as yogurt, kimchi or kombucha to keep your good bacterial nicolas intact in the GI tract. Please follow-up with your primary care provider, Dr. Gar, regarding your hospitalization, to follow-up biopsies, repeat blood counts and ensure H. pylori has been eradicated. You have been prescribed iron or ferrous gluconate 324 mg daily to help rebuild blood stores. Iron supplementation may be constipating and recommend stool softener such as Colace 100 mg twice daily and MiraLax 17 g daily as needed for constipation. Discharge orders & Medications Prescriptions: New clarithromycin 500 mg Tablet 500 mg PO BID Qty: 24 RF: 0 pantoprazole 40 mg Tablet,Delayed Release (Dr/Ec) 40 mg PO 0700,2100 Qty: 24 RF: 0 amoxicillin 250 mg Capsule 1,000 mg PO BID Qty: 24 RF: 0 ferrous gluconate 324 mg (38 mg iron) Tablet 324 mg PO DAILY Qty: 30 RF: 0 polyethylene glycol 3350 [Miralax] 17 gram/dose powder 17 gram PO DAILY PRN (Reason: constipation) Qty: 119 RF: 0 docusate sodium [Colace] 100 mg capsule 100 mg PO BID Qty: 60 RF: 0 Follow up/Referrals: Antonio Gar MD [Primary Care Provider] - 1 Week Diet/Activity/Treatments Diet: Diet as Tolerated and Regular Activity: Activity as tolerated Visit Report/Discharge Packet Instructions: Duodenal Ulcer, DI for Peptic Ulcer, DI for Helicobacter Pylori Infection, Helicobacter Pylori Infection, Stool Softeners, Pantoprazole, Polyethylene Glycol 3350, Amoxicillin, Clarithromycin Visit Report Forms: Patient Portal/API, Stroke Signs & Symptoms Discharge Data Primary Care Provider: Antonio Gar Discharges patient from system. Discharge Date/Time: 11/19/19 12:37
--- NOTE | 2019-11-19 13:42 | CM.DPNOTE ---
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 P: Home w/family via pov JW
== END 2019-11-19 12:37 | disposition home or self-care (01) | DRG 378 ==
LOC: ED 16:09 → AC 16:12
PROVIDERS: Internal Medicine; Nurse Practitioner Adult Health; Surgery; Admitting Provider Internal Medicine; Emergency Provider Emergency Medicine; PCP Family Medicine; Referring Provider Emergency Medicine; Visit Provider Internal Medicine
PROC: 0DJ08ZZ Inspection of Upper Intestinal Tract, Via Natural or Artificial Opening Endoscopic (ICD-10-PCS; CPT 43235; principal; 2019-11-17 16:50)
DX: K26.4 Chronic or unspecified duodenal ulcer with hemorrhage (principal); D62 Acute posthemorrhagic anemia; Z11.59 Encounter for screening for other viral diseases
CPT/HCPCS: 36415; 36430; 43239; 80053; 81001; 81003; 82550; 83540; 83550; 83605; 83690; 83735; 84484; 85014; 85018; 85025; 86850; 86900; 86901; 87635; 93005; 96361; 96365; 96366; 96376; 99221; 99231; 99285; P9016; C9113; J0330; J2250; J2405; J2704; J3010

== ENCOUNTER → 2019-11-26 10:21 | Outpatient (CLI) | payer OTHER, SELFPAY ==
[2019-11-17 19:45] VITALS: BMI 28.8
[2019-11-26 12:17] LABS: Add Manual Diff / Slide Review NO; Basophils Absolute Auto 100 /uL (0-100); Basophils Percent Auto 1.1 % (0-2); Eosinophils Absolute Auto 0 /uL (0-450); Eosinophils Percent Auto 0.9 % (2-4); Lymphocytes Absolute Auto 1700 /uL (1100-4500); Lymphocytes Percent Auto 31.8 % (25-40); Mean Corpuscular HGB Conc 31.9 % (30-36); Mean Corpuscular Volume 78.2 fL (80-100); Monocytes Absolute Auto 700 /uL (0-900); Monocytes Percent Auto 13.4 % (3-14); Neutrophils Absolute Auto 2900 /uL (1500-7000); Neutrophils Percent Auto 52.8 % (50-75); Platelet Count 464 X10^3/uL (150-400); Red Blood Cell Count 3.59 X10^6/uL (4.5-5.9); Red Cell Distribution Width 23.6 % (11.6-14.8); White Blood Cell Count 5.5 X10^3/uL (4.5-11.0)
[2019-11-26 12:31] LABS: Anisocytosis 2+; Poikilocytosis 1+
== END ==
PROVIDERS: PCP Family Medicine; Referring Provider Family Medicine; Visit Provider Family Medicine
DX: D64.9 Anemia, unspecified (principal); K92.2 Gastrointestinal hemorrhage, unspecified
CPT/HCPCS: 36415; 85025

== ENCOUNTER → 2019-12-29 15:01 | Outpatient (CLI) | payer OTHER, SELFPAY ==
[2019-11-17 19:45] VITALS: BMI 28.8
[2019-12-29 16:24] LABS: Hematocrit 37.2 % (41-53); Hemoglobin 11.5 g/dL (13.5-17.5)
== END ==
PROVIDERS: PCP Family Medicine; Referring Provider Family Medicine; Visit Provider Family Medicine
DX: D64.9 Anemia, unspecified (principal); K92.2 Gastrointestinal hemorrhage, unspecified
CPT/HCPCS: 36415; 85014; 85018

== ENCOUNTER → 2024-06-01 12:10 | Outpatient (CLI) | payer OTHER, SELFPAY ==
[2019-11-17 19:45] VITALS: BMI 28.8
[2024-06-01 13:04] LABS: Add Manual Diff / Slide Review NO; Basophils Absolute Auto 0 /uL (0-100); Basophils Percent Auto 0.9 % (0-2); Eosinophils Absolute Auto 100 /uL (0-450); Eosinophils Percent Auto 2.6 % (2-4); Hematocrit 51.1 % (41-53); Hemoglobin 17.4 g/dL (13.5-17.5); Lymphocytes Absolute Auto 1400 /uL (1100-4500); Lymphocytes Percent Auto 29.4 % (25-40); Mean Corpuscular HGB Conc 34.1 % (30-36); Mean Corpuscular Hemoglobin 32.9 PG (26-34); Mean Corpuscular Volume 96.6 fL (80-100); Monocytes Absolute Auto 400 /uL (0-900); Monocytes Percent Auto 8.9 % (3-14); Neutrophils Absolute Auto 2900 /uL (1500-7000); Neutrophils Percent Auto 58.2 % (50-75); Platelet Count 266 X10^3/uL (150-400); Red Blood Cell Count 5.29 X10^6/uL (4.5-5.9); Red Cell Distribution Width 13.4 % (11.6-14.8); White Blood Cell Count 4.9 X10^3/uL (4.5-11.0)
[2024-06-01 13:27] LABS: Alanine Aminotransferase 61 IU/L (<50); Albumin 4.4 g/dL (3.5-5.0); Albumin Globulin Ratio 1.4 (1.0-2.8); Alkaline Phosphatase 62 U/L (38-126); Aspartate Aminotransferase 56 IU/L (17-59); BUN Creatinine Ratio 14.6 (6-22); Bilirubin Total 0.8 mg/dL (0.2-1.3); Blood Urea Nitrogen 15 mg/dL (9-20); Calcium 9.3 mg/dL (8.4-10.2); Carbon Dioxide 27 mmol/L (22-32); Chloride 105 mmol/L (98-107); Cholesterol 175 mg/dL (140-199); Estimated Glomerular Filt Rate > 60 mL/min (>60); Globulin 3.2 g/dL (1.7-4.1); Glucose 113 mg/dL (70-100); HDL Cholesterol 48 mg/dL (40-60); HEMOLYSIS 19 (0-50); LDL Cholesterol Calculated 99 mg/dL (<100); Potassium 4.4 mmol/L (3.4-5.1); Sodium 138 mmol/L (137-145); Total Protein 7.6 g/dL (6.3-8.2); Triglycerides 140 mg/dL (35-150)
[2024-06-01 13:56] LABS: TSH w/ Reflex to FT4 1.54 uIU/mL (0.47-4.68)
[2024-06-02 12:49] LABS: Hemoglobin A1C% w Est Avg Glu 5.6 % (4.0-6.0)
[2024-06-03 05:15] LABS: Hepatitis B Surf AB Quant <3.5 mIU/mL (Immunity>10)
== END ==
PROVIDERS: PCP Family Medicine; Referring Provider Family Medicine; Visit Provider Family Medicine
DX: K26.9 Duodenal ulcer, unspecified as acute or chronic, without hemorrhage or perforation (principal); B19.10 Unspecified viral hepatitis B without hepatic coma
CPT/HCPCS: 36415; 80053; 80061; 83036; 84443; 85025; 86706